=== PATIENT | male | born 1980 | race Caucasian/White ===

== ENCOUNTER → 2016-09-19 | Outpatient (CLI) | payer OTHER ==
--- NOTE | 2016-09-19 09:31 | DI ---
EXAM: US RENAL DATE: 09/19/2016 12:00 AM SITE OF DICTATION: Ashok. INDICATION: ITS.REASON: Z87.442 Personal history of urinary calculi COMPARISON: None available. TECHNIQUE: Multiple real-time grayscale sonographic images were obtained of the right and left kidneys with color flow and spectral analysis. FINDINGS: The right kidney demonstrates normal corticomedullary differentiation and measures 10.0 x 3.7 x 4.5 cm. There is a simple cyst involving the right kidney which measures 1.5 x 1.1 x 1.2 cm. There is no right sided mass, calculus or hydronephrosis. The left kidney demonstrates normal corticomedullary differentiation and measures 10.0 x 4.4 x 5.3 cm. There is a 0.9 x 1.2 x 1.1 cm calculus within the left kidney. There is mild left-sided hydronephrosis suggested. IMPRESSION: 1. There is a 1.2 cm calculus within the left kidney. The left kidney demonstrates mild hydronephrosis. A distal obstructing ureteral calculus cannot be excluded. 2. There is a simple right renal cyst. The right kidney is otherwise unremarkable. .
== END ==
LOC: IMA 06:40
PROVIDERS: ATTEND Internal Medicine
DX: N20.0 Calculus of kidney (principal); N13.30 Unspecified hydronephrosis; N28.1 Cyst of kidney, acquired; Z87.442 Personal history of urinary calculi